=== PATIENT | female | born 1995 | race Caucasian/White ===

== ENCOUNTER 2017-03-27 17:11 | Emergency (ER) | payer OTHER ==
[~2017-03-27] VITALS: Ht 177.8 cm; Wt 67.1 kg
[2017-03-27 19:09] VITALS: BP 121/74
== END 2017-03-27 19:12 | disposition home or self-care (01) ==
LOC: ED 19:00
DX: B34.9 Viral infection, unspecified (principal); B30.9 Viral conjunctivitis, unspecified; R19.7 Diarrhea, unspecified
CPT/HCPCS: 99281